=== PATIENT | female | born 1985 | race Caucasian/White ===

== ENCOUNTER 2018-03-25 18:30 | Emergency (ER) | payer SELFPAY ==
[~2018-03-25] VITALS: Ht 152.4 cm; Wt 72.6 kg
[2018-03-25 18:34] VITALS: BP 117/47
--- NOTE | 2018-03-25 18:39 | NUR ---
PT AMBULATED TO ER BED 07
--- NOTE | 2018-03-25 18:45 | NUR ---
BIB SISTER WITH C/O RIGHT AB PAIN X 3 DAYS. -N/V/D. LMB 03/25/18, PT ALSO STATES SHE HAS A BLISTER ON HER ANAL CANAL THE SAME TIME THE PAIN STARTED. BLISTER BURNING SENSATION, 9/10 PAIN SCALE
--- NOTE | 2018-03-25 19:15 | NUR ---
RECEIVED REPORT FROM AM NURSE. PT LAYING IN BED, RR EVEN AND UNLABORED. ALL NEEDS MET.
--- NOTE | 2018-03-25 20:00 | NUR ---
Dr. Beatty evaluating patient at bedside.
--- NOTE | 2018-03-25 20:17 | NUR ---
Patient discharged with v/s stable. Written and verbal after care instructions given and explained. Patient alert, oriented and verbalized understanding of instructions. Ambulatory with steady gait. All questions addressed prior to discharge. ID band removed. Patient advised to follow up with PMD. Rx of MACROBID, PYRIDIUM given. Patient educated on indication of medication including possible reaction and side effects. Opportunity to ask questions provided and answered.
[2018-03-25 20:18] VITALS: BP 142/81
== END 2018-03-25 20:17 | disposition home or self-care (01) ==
LOC: MED 18:30
DX: N39.0 Urinary tract infection, site not specified (principal); K64.4 Residual hemorrhoidal skin tags
CPT/HCPCS: 81002; 81025; 99283